=== PATIENT | female | born 1975 | race Caucasian/White ===

== ENCOUNTER → 2022-05-28 08:52 | Outpatient (CLI) | payer OTHER, MEDICAID, SELFPAY ==
--- NOTE | 2022-05-28 08:56 | DI.MG.S_ITS ---
BILATERAL DIGITAL DIAGNOSTIC MAMMOGRAM 3D/2D: 05/28/2022 CLINICAL: Right breast lump. Comparison is made to exams dated: 09/21/2020 mammogram and 11/25/2018 mammogram - [facility]. The tissue of both breasts is heterogeneously dense. This may lower the sensitivity of mammography. There is a biopsy clip in the right breast. No significant masses, calcifications, or other findings are seen in either breast. IMPRESSION: INCOMPLETE: NEEDS ADDITIONAL IMAGING EVALUATION There is no abnormality seen in the right breast to correspond with the palpable abnormality in the posterior depth in the inferior medial quadrant, however, ultrasound is recommended. Based on the Tyrer Cuzick model (a risk assessment model) the patient's lifetime risk is 12.7% and her 10 year risk is 2.7%. According to the ACR, ACS, and NCCN guidelines, an annual breast MRI exam along with mammogram is recommended if the patient's lifetime risk is 20% or greater. This exam was interpreted at Station ID: [id number]. NOTE: For mammograms, a report in lay terms will be sent to the patient. Approximately 15% of breast malignancies will not be visualized mammographically. In the management of a palpable breast mass, a negative mammogram must not discourage biopsy of a clinically suspicious lesion. Electronically Signed By: Harley [email or web address]:05/28/2022 14:06:45 ACR BI-RADS Category 0: Incomplete 3340F
--- NOTE | 2022-05-28 08:56 | DI.US.S_ITS ---
LIMITED ULTRASOUND OF RIGHT BREAST AND AXILLA: 05/28/2022 CLINICAL: Palpable right breast lump x 1 year. Comparison is made to exams dated: 05/28/2022 mammogram - [facility], 09/21/2020 mammogram, 11/25/2018 mammogram, and 11/27/2014 mammogram - [facility]. Color flow ultrasound of the right breast 4 o'clock, and axilla regions was performed. Bansal scale images of the real-time examination were reviewed. There is a 1.7 cm x 1.5 cm x 0.8 cm irregular mass with a circumscribed margin in the right breast at 4 o'clock posterior depth 12 cm from the nipple. This irregular mass is hypoechoic. This correlates as palpated. Color flow imaging demonstrates that there is increased vascularity. No significant abnormalities were seen sonographically in the right axilla. IMPRESSION: SUSPICIOUS OF MALIGNANCY The 1.7 cm x 1.5 cm x 0.8 cm irregular mass in the right breast is suspicious of malignancy. An ultrasound guided biopsy is recommended. The findings and recommendations were discussed with the patient by the onsite radiologist, Dr. Mansfield, at the time of the exam. This exam was interpreted at Station ID: [id number]. Electronically Signed By: Harley [email or web address]/[email or web address]:05/28/2022 14:30:25 letter sent: Biopsy Required Ultrasound BI-RADS: 4 Suspicious for malignancy
== END ==
PROVIDERS: PCP Physician Assistant; Referring Provider Physician Assistant; Visit Provider Physician Assistant
DX: N63.14 Unspecified lump in the right breast, lower inner quadrant (principal); R92.2 Inconclusive mammogram
CPT/HCPCS: 76642; 77066; G0279